=== PATIENT | male | born 1975 | race Caucasian/White ===

== ENCOUNTER 2021-06-21 21:07 | Emergency (ER) | payer SELFPAY ==
[~2021-06-21] VITALS: Ht 172.7 cm; Wt 70.3 kg
[~2021-06-21 21:07] MED LIST: IBUPROFEN400 MG PO; IBUPROFEN800 MG PO; NORCO 5-325 TA1 EACH PO; PENICILLIN V P500 MG PO
== END 2021-06-22 00:38 | disposition home or self-care (01) ==
LOC: ED 21:07
DX: T23.242A Burn of second degree of multiple left fingers (nail), including thumb, initial encounter (principal); T31.0 Burns involving less than 10% of body surface; X19.XXXA Contact with other heat and hot substances, initial encounter; F17.200 Nicotine dependence, unspecified, uncomplicated; Z88.5 Allergy status to narcotic agent
CPT/HCPCS: 16020; 99283-25